=== PATIENT | female | born 1950 | race Caucasian/White ===

== ENCOUNTER 2020-11-17 15:29 | Outpatient (CLI) | payer MEDICARE, OTHER | END 2020-11-17 15:30 | disposition home or self-care (01) | LOC: BICRAD 15:29 | PROVIDERS: ATTEND Family Medicine | DX: M25.562 Pain in left knee (principal); M17.12 Unilateral primary osteoarthritis, left knee; M89.9 Disorder of bone, unspecified ==

== ENCOUNTER 2021-03-02 09:03 | Outpatient (CLI) | payer MEDICARE, OTHER ==
[2021-03-02 10:11] LABS: Bilirubin Neg (Negative); Blood, Urine Negative (Negative); Clarity Clear (Clear); Glucose, Urine (Dipstick) Normal (Negative); Ketone, Urine Negative (Negative); Leukocyte Negative (Negative); Nitrite Negative (Negative); Protein, Urine (Dipstick) Negative (Neg-Trace); Urobilinogen Normal mg/dL (Less than 2)
[2021-03-02 10:25] LABS: #Eosinphils 0.1 10x3/uL (0.0-0.5); #Monocytes 0.7 10x3/uL (0.0-1.1); #Neutrophils 3.6 10x3/uL (1.5-8.4); %Basophils 0.6 % (0.0-2.0); %Eosinophils 1.1 % (0.0-6.0); %Lymphocytes 32.7 % (18.0-47.0); %Monocytes 11.2 % (0.0-10.0); %Neutrophils 54.2 % (40.0-75.0); Hemoglobin 13.4 g/dL (12.0-15.5); Mean Corpuscular HGB CONC 31.6 g/dL (32.0-36.0); Mean Corpuscular Hemoglobin 30.9 pg (27.0-33.0); Mean Corpuscular Volume 97.7 fl (81.6-98.3); Mean Platelet Volume 10.5 fl (7.4-10.4); Platelet Count 253 10x3/uL (150-450); RBC Distribution Width 13.3 % (11.5-14.5); Red Blood Cell (RBC) Count 4.34 10x6/uL (3.90-5.03); White Blood Cell (WBC) Count 6.6 10x3/uL (3.5-10.5)
[2021-03-02 10:34] LABS: Prothrombin Time 10.9 sec (9.5-12.1)
[2021-03-02 10:35] LABS: Anion Gap 12 mmol/L (10-20); BUN (Urea Nitrogen) 18 mg/dL (9.8-20.1); Calc. Creatinine Clearance 0 mL/min (70-130); Calcium 9.7 mg/dL (7.8-10.44); Carbon Dioxide 26 mmol/L (23-31); Chloride 106 mmol/L (98-107); Glucose 77 mg/dL (80-115); Potassium 4.2 mmol/L (3.5-5.1); Sodium 140 mmol/L (136-145)
[2021-03-02 10:47] LABS: Bacteria/HPF None Seen HPF (None Seen); RBC/HPF 0-3 HPF (0-3); Squamous Epithelial 0-3 HPF (0-3); WBC/HPF 0-3 HPF (0-3)
[2021-03-03 02:26] LABS: SARS-CoV-2 PCR by NAA Not Detected (NotDetected)
== END 2021-03-02 09:04 | disposition home or self-care (01) ==
LOC: LABBT 09:03
PROVIDERS: ATTEND Orthopaedic Surgery
DX: Z01.818 Encounter for other preprocedural examination (principal); M17.12 Unilateral primary osteoarthritis, left knee; Z20.822 Contact with and (suspected) exposure to COVID-19
CPT/HCPCS: 80048; 81001; 85025; 85610; 86850; 86900; 86901; 87081; 93005; U0003; U0005; 93010

== ENCOUNTER 2021-04-13 09:14 | Outpatient (CLI) | payer MEDICARE, OTHER ==
[2021-04-13 19:28] LABS: SARS-CoV-2 PCR by NAA Not Detected (NotDetected)
== END 2021-04-13 09:15 | disposition home or self-care (01) ==
LOC: LABBT 09:14
PROVIDERS: ATTEND Orthopaedic Surgery
DX: Z01.812 Encounter for preprocedural laboratory examination (principal); M17.12 Unilateral primary osteoarthritis, left knee; Z20.822 Contact with and (suspected) exposure to COVID-19
CPT/HCPCS: U0003; U0005

== ENCOUNTER 2021-04-18 06:56 | Day surgery (SDC) | payer MEDICARE, OTHER ==
[2021-04-15 10:44] VITALS: BMI 37.4
[2021-04-18] MEDS ORDERED: Sodium Chloride 0.9% 100 ML ONE (08:01)
[2021-04-18] MEDS ORDERED: Tranexamic Acid 1,000 MG/10 ML VIAL ONE (08:01)
[2021-04-18] MEDS ORDERED: Vancomycin 1.5 GRAM/300 ML BAG 1.5 GM in Premix Bag 1 BAG IVPB SCH ×2 (08:15→21:00)
[2021-04-18 08:45] LABS: Prothrombin Time 13.3 sec (12.0-14.7)
[2021-04-18] MEDS ORDERED: Fentanyl 100 MCG/2 ML VIAL ONE ×4 (08:47→13:18)
[2021-04-18] MEDS ORDERED: Midazolam HCl 2 mg/2 ml Vial ONE ×2 (08:47→08:48)
[2021-04-18] MEDS ORDERED: Bupivacaine PF 0.5% 30 ML VIAL ONE (09:33)
[2021-04-18] MEDS ORDERED: PROPOFOL 200 MG/20 ML VIAL ONE (10:04)
[2021-04-18] MEDS ORDERED: Lidocaine 1% PF 5 ML VIAL ONE (10:04)
[2021-04-18] MEDS ORDERED: Dexamethasone 20 MG/5 ML VIAL ONE (10:04)
[2021-04-18] MEDS ORDERED: Bupivacaine HCl 0.5%/Epinephrine 1:200,000/PF 30 ml Vial ONE (10:04)
[2021-04-18] MEDS ORDERED: PHENYLEPHRINE-NS 100 MCG/ML 10 ML SYRINGE ONE (10:04)
[2021-04-18] MEDS ORDERED: Ketorolac Tromethamine 30 MG/ML VIAL ONE (10:04)
[2021-04-18] MEDS ORDERED: Ondansetron PF 4 MG/2 ML Vial ONE (10:04)
[2021-04-18] MEDS ORDERED: Fentanyl 100 MCG/2 ML VIAL IV PRN (10:05)
[2021-04-18] MEDS ORDERED: Acetaminophen 325 MG TAB PO PRN (10:10)
[2021-04-18] MEDS ORDERED: Promethazine HCl 25 MG/ML VIAL IM PRN ×3 (10:10→12:03)
[2021-04-18] MEDS ORDERED: Zolpidem Tartrate 5 MG TAB PO PRN ×2 (10:10→10:15)
[2021-04-18] MEDS ORDERED: diphenhydrAMINE 25 MG CAP PO PRN (10:10)
[2021-04-18] MEDS ORDERED: Ondansetron PF 4 MG/2 ML Vial IVP PRN ×2 (10:10→10:15)
[2021-04-18] MEDS ORDERED: Non-Formulary Item 1 EACH (Ibandronate Sodium [Ibandronate Sodium] 150 MG Tablet) PO SCH (10:15)
[2021-04-18] MEDS ORDERED: Ropivacaine 0.2% 550 ML 550 ML NERVE BLCK SCH (10:15)
[2021-04-18] MEDS ORDERED: traMADol HCl 50 MG TAB PO PRN ×2 (10:15)
[2021-04-18] MEDS ORDERED: Ketorolac Tromethamine 30 MG/ML VIAL IVP PRN (10:15)
[2021-04-18] MEDS ORDERED: HYDROcodone/Acetaminophen 10/325 mg Tablet PO PRN (10:15)
[2021-04-18] MEDS ORDERED: Tranexamic Acid 1,000 MG in Sodium Chloride 0.9% 100 ML IVPB SCH (10:15)
[2021-04-18] MEDS ORDERED: Promethazine HCl 25 MG/ML VIAL IVPB PRN (12:03)
[2021-04-18] MEDS ORDERED: Ondansetron HCl/PF 4 MG/2 ML Vial IVP PRN (12:03)
[2021-04-18] MEDS: Sodium Chloride 0.9% 1,000 ML IV SCH (16:20)
[2021-04-18] MEDS: HYDROcodone/Acetaminophen 10/325 mg Tablet PO PRN ×2 (16:49→21:43)
[2021-04-18] MEDS ORDERED: CEFAZOLIN 2 GM in Premix Bag 1 BAG IVPB SCH (18:00)
[2021-04-18] MEDS: Senokot S 8.6-50 MG TAB PO SCH (21:38)
[2021-04-18] MEDS: Aspirin 81 mg Enteric Coated Tablet PO SCH (21:39)
[2021-04-18] MEDS: Ferrous Gluconate 324 MG TAB PO SCH (21:39)
[2021-04-19] MEDS: Sodium Chloride 0.9% 1,000 ML IV SCH ×2 (01:15→05:01)
[2021-04-19] MEDS ORDERED: CEFAZOLIN 2 GM in Premix Bag 1 BAG IVPB SCH (02:00)
[2021-04-19] MEDS: HYDROcodone/Acetaminophen 10/325 mg Tablet PO PRN ×4 (02:22→16:11)
[2021-04-19 05:52] LABS: Hemoglobin 10.9 g/dL (12.0-16.0); Mean Corpuscular HGB CONC 32.7 g/dL (32.0-36.0); Mean Corpuscular Hemoglobin 31.7 pg (27.0-31.0); Mean Corpuscular Volume 96.7 fL (78.0-98.0); Mean Platelet Volume 7.8 fL (7.4-10.4); Platelet Count 210 thou/uL (130-400); Red Blood Cell (RBC) Count 3.45 mill/uL (4.20-5.40); White Blood Cell (WBC) Count 9.4 thou/uL (4.8-10.8)
[2021-04-19] MEDS: Ferrous Gluconate 324 MG TAB PO SCH (08:41)
[2021-04-19] MEDS: Aspirin 81 mg Enteric Coated Tablet PO SCH (08:42)
[2021-04-19] MEDS: Senokot S 8.6-50 MG TAB PO SCH (08:42)
[2021-04-19] MEDS ORDERED: Atorvastatin Calcium 40 MG TAB PO SCH (09:00)
[2021-04-19] MEDS ORDERED: Aspirin 81 mg Enteric Coated Tablet PO SCH (09:00)
[2021-04-19] MEDS ORDERED: Calcium Carbonate 600 MG + Vit D TAB PO SCH (09:00)
[2021-04-19] MEDS ORDERED: Multivitamin W/ Minerals 1 TAB PO SCH (09:00)
[2021-04-19 12:19] VITALS: BP 111/73; TEMP 98.3
== END 2021-04-19 17:05 | disposition home health service (06) ==
LOC: SDC 06:56 → SURG A 10:10 → SDC 04-19 17:05
PROVIDERS: ATTEND Orthopaedic Surgery
PROC: 0SRD0J9 Replacement of Left Knee Joint with Synthetic Substitute, Cemented, Open Approach (ICD-10-PCS; principal; 2021-04-18)
PROC: 3E0T3BZ Introduction of Anesthetic Agent into Peripheral Nerves and Plexi, Percutaneous Approach (ICD-10-PCS; 2021-04-18)
DX: M17.12 Unilateral primary osteoarthritis, left knee (principal); M21.062 Valgus deformity, not elsewhere classified, left knee; E78.5 Hyperlipidemia, unspecified; M81.0 Age-related osteoporosis without current pathological fracture; K21.9 Gastro-esophageal reflux disease without esophagitis; H26.9 Unspecified cataract; G89.29 Other chronic pain; Z88.5 Allergy status to narcotic agent; Z91.048 Other nonmedicinal substance allergy status; Z79.82 Long term (current) use of aspirin; Z79.899 Other long term (current) drug therapy; Z98.890 Other specified postprocedural states
CPT/HCPCS: 27447; 64447; 85027; 85610; 86850; 86900; 86901; 97110; 97116 ×2; 97139; 97530 ×2; A4306; C1713; C1776; 36415; J0690; J1100; J1885; J2250; J2405; J2704; J2795; J3010; J3370; J3490; S0020

== ENCOUNTER 2022-05-04 15:02 | Outpatient (CLI) | payer MEDICARE, OTHER ==
[2022-05-04 16:44] LABS: #Basophils 0.1 10x3/uL (0.0-0.2); #Eosinphils 0.1 10x3/uL (0.0-0.5); #Monocytes 0.6 10x3/uL (0.0-1.1); #Neutrophils 3.4 10x3/uL (1.5-8.4); %Basophils 0.8 % (0.0-2.0); %Eosinophils 1.1 % (0.0-6.0); %Lymphocytes 34.3 % (18.0-47.0); %Monocytes 9.4 % (0.0-10.0); %Neutrophils 54.1 % (40.0-75.0); Hemoglobin 12.9 g/dL (12.0-15.5); Mean Corpuscular HGB CONC 33.3 g/dL (32.0-36.0); Mean Corpuscular Hemoglobin 31.5 pg (27.0-33.0); Mean Corpuscular Volume 94.4 fl (81.6-98.3); Mean Platelet Volume 11.5 fl (7.4-10.4); Platelet Count 213 10x3/uL (150-450); RBC Distribution Width 13.9 % (11.5-14.5); White Blood Cell (WBC) Count 6.4 10x3/uL (3.5-10.5)
[2022-05-04 17:26] LABS: ALT (SGPT) 19 U/L (8-55); AST (SGOT) 22 U/L (5-34); Albumin 4.2 g/dL (3.4-4.8); Alkaline Phosphatase 63 U/L (40-110); Anion Gap 14 mmol/L (10-20); BUN (Urea Nitrogen) 19 mg/dL (9.8-20.1); Bilirubin, Total 0.6 mg/dL (0.2-1.2); Calc. Creatinine Clearance 0 mL/min (70-130); Calcium 9.2 mg/dL (7.8-10.44); Carbon Dioxide 25 mmol/L (23-31); Chloride 108 mmol/L (98-107); Estimated GFR 75; Globulin 2.2 g/dL (2.4-3.5); Glucose 91 mg/dL (80-115); Potassium 4.6 mmol/L (3.5-5.1); Protein, Total 6.4 g/dL (5.8-8.1); Sodium 142 mmol/L (136-145)
== END 2022-05-04 15:03 | disposition home or self-care (01) ==
LOC: LABBT 15:02
PROVIDERS: ATTEND Orthopaedic Surgery
DX: Z01.812 Encounter for preprocedural laboratory examination (principal); M17.12 Unilateral primary osteoarthritis, left knee
CPT/HCPCS: 80053; 85025

== ENCOUNTER 2022-05-05 06:50 | Day surgery (SDC) | payer MEDICARE, OTHER ==
[2022-05-04 12:41] VITALS: BMI 35.7
[2022-05-05 08:29] LABS: Cardiac Risk 2.9 (Less than 4.5)
[2022-05-05] MEDS ORDERED: Verapamil 5 MG/2 ML VIAL ONE (09:15)
[2022-05-05] MEDS ORDERED: Heparin 10,000 UNITS/ 10 ML VIAL ONE (09:15)
[2022-05-05] MEDS ORDERED: Lidocaine 1% (PF) 30 ML VIAL ONE (09:15)
[2022-05-05] MEDS ORDERED: Nitroglycerin 100MG/250ML BOT 0 ML ONE (09:15)
[2022-05-05] MEDS ORDERED: Nitroglycerin 100MG/250ML BOT 250 ML ONE (09:16)
[2022-05-05] MEDS ORDERED: Midazolam HCl 2 mg/2 ml Vial ONE (09:23)
[2022-05-05] MEDS ORDERED: Fentanyl 100 MCG/2 ML VIAL ONE (09:23)
[2022-05-05] MEDS ORDERED: Iopamidol 370 76% 100 ML VIAL ONE (09:52)
== END 2022-05-05 13:40 | disposition home or self-care (01) ==
LOC: SDC 06:50
PROVIDERS: ATTEND Internal Medicine Cardiovascular Disease
PROC: 4A023N7 Measurement of Cardiac Sampling and Pressure, Left Heart, Percutaneous Approach (ICD-10-PCS; principal; 2022-05-05)
PROC: B2111ZZ Fluoroscopy of Multiple Coronary Arteries using Low Osmolar Contrast (ICD-10-PCS; 2022-05-05)
DX: I25.10 Atherosclerotic heart disease of native coronary artery without angina pectoris (principal); I25.82 Chronic total occlusion of coronary artery; I42.9 Cardiomyopathy, unspecified; E78.00 Pure hypercholesterolemia, unspecified; M81.0 Age-related osteoporosis without current pathological fracture; K21.9 Gastro-esophageal reflux disease without esophagitis; Z79.82 Long term (current) use of aspirin; Z79.899 Other long term (current) drug therapy; Z88.5 Allergy status to narcotic agent; Z91.048 Other nonmedicinal substance allergy status
CPT/HCPCS: 36415; 80061; 93454; 99152; C1894; J1644; J2001; J2250; J3010; Q9967

== ENCOUNTER 2023-02-12 11:00 | Inpatient (IN) | payer MEDICARE, OTHER ==
[2023-02-12 12:13] LABS: Hematocrit 44.4 % (34.9-44.5); Hemoglobin 13.9 g/dL (12.0-15.5); Mean Corpuscular HGB CONC 31.3 g/dL (32.0-36.0); Mean Corpuscular Hemoglobin 30.8 pg (27.0-33.0); Mean Corpuscular Volume 98.2 fl (81.6-98.3); Mean Platelet Volume 10.2 fl (7.4-10.4); Platelet Count 245 10x3/uL (150-450); RBC Distribution Width 13.6 % (11.5-14.5); Red Blood Cell (RBC) Count 4.52 10x6/uL (3.90-5.03); White Blood Cell (WBC) Count 6.8 10x3/uL (3.5-10.5)
[2023-02-12 12:26] LABS: Anion Gap 16 mmol/L (10-20); BUN (Urea Nitrogen) 21 mg/dL (9.8-20.1); Calc. Creatinine Clearance 0 mL/min (70-130); Calcium 9.5 mg/dL (7.8-10.44); Carbon Dioxide 23 mmol/L (23-31); Chloride 107 mmol/L (98-107); Estimated GFR 71; Glucose 86 mg/dL (80-115); Potassium 4.8 mmol/L (3.5-5.1); Sodium 141 mmol/L (136-145)
[2023-02-13] MEDS ORDERED: Ketamine 50 MG/ML (10ML VIAL) ONE (06:00)
[2023-02-13] MEDS ORDERED: Fentanyl 250 MCG/5 ML VIAL ONE (06:00)
[2023-02-13] MEDS ORDERED: Midazolam HCl 2 mg/2 ml Vial ONE (06:00)
[2023-02-13] MEDS ORDERED: Norepinephrine 4 MG/4 ML VIAL ONE (06:01)
[2023-02-13] MEDS ORDERED: Milrinone 10 MG/10 ML VIAL ONE (06:01)
[2023-02-13] MEDS ORDERED: Aminocaproic Acid 5 GM/20 ML VIAL ONE ×2 (06:01→07:00)
[2023-02-13] MEDS ORDERED: Magnesium 5 GM/10 ML VIAL ONE ×2 (06:01→07:00)
[2023-02-13] MEDS ORDERED: Phenylephrine 10 MG/ML VIAL ONE ×2 (06:01→06:38)
[2023-02-13] MEDS ORDERED: Lidocaine 1% MPF 2 ML VIAL ONE (06:02)
[2023-02-13] MEDS ORDERED: Acetaminophen 500 MG TAB ONE (06:25)
[2023-02-13] MEDS ORDERED: Albumin 5% 500 ML ONE (06:38)
[2023-02-13] MEDS ORDERED: PHENYLEPHRINE-NS 100 MCG/ML 10 ML SYRINGE ONE (06:39)
[2023-02-13] MEDS ORDERED: Heparin 10,000 UNITS/1 ML VIAL 30,000 UNITS in Sodium Chloride 0.9% 1,000 ML FS SCH (06:45)
[2023-02-13] MEDS ORDERED: Rocuronium Bromide 10 MG/ML (10ML VIAL) ONE (07:00)
[2023-02-13] MEDS ORDERED: PROPOFOL 200 MG/20 ML VIAL ONE (07:00)
[2023-02-13] MEDS ORDERED: Thrombin 5000 UNITS/5 ML VIAL ONE (07:00)
[2023-02-13] MEDS ORDERED: Vancomycin 1 GM VIAL ONE (07:00)
[2023-02-13] MEDS ORDERED: Heparin 30,000 units/30 ml VIAL ONE (07:00)
[2023-02-13] MEDS ORDERED: Lidocaine 2% PF 100 mg/5 ml Syringe ONE (07:00)
[2023-02-13] MEDS ORDERED: Calcium Chloride 1 GM/10 ML Abboject SYRINGE ONE (07:00)
[2023-02-13] MEDS ORDERED: Mannitol 12.5 GM/50 ML ONE (07:00)
[2023-02-13] MEDS ORDERED: Potassium Chloride 60 MEQ/30 ML VIAL ONE (07:00)
[2023-02-13] MEDS ORDERED: Sodium Bicarb 50 MEQ/50 ML VIAL ONE (07:00)
[2023-02-13] MEDS ORDERED: Protamine Sulfate 250 MG/25 ML VIAL ONE (07:00)
[2023-02-13] MEDS ORDERED: Cardioplegic Soln 1,000 ML BAG ONE (07:00)
[2023-02-13] MEDS ORDERED: Heparin 5,000 UNITS/ML VIAL ONE (07:00)
[2023-02-13] MEDS ORDERED: Papaverine 60 MG/2 ML VIAL ONE (07:00)
[2023-02-13] MEDS ORDERED: CEFAZOLIN 2 GM VIAL ONE (07:29)
[2023-02-13] MEDS ORDERED: Sodium Chloride 0.9% 100 ML ONE (07:29)
[2023-02-13] MEDS ORDERED: Insulin Regular 300 UNITS/3 ML VIAL ONE (10:15)
[2023-02-13] MEDS ORDERED: NOREPINEPHRINE 8 MG/250 ML-D5W 250 ML ONE (11:48)
[2023-02-13 11:50] LABS: Actual Bicarbonate (HCO3a) 20.9 mEq/L (22-28); Base Excess (BEa) -3.5 mEq/L (-2.0 to +3.0); CO2 Tension 35.4 mmHg (35.0-45.0); Calcium, Ionized (arterial) 1.14 mmol/L (1.12-1.30); Carboxyhemoglobin (COHb) 0.3 gm% (0.0-3.0); Hematocrit-ABG 36 % (36.0-47.0); Hemoglobin (Hb) 12.1 g/dL (12.0-16.0); O2 Tension (PaO2), arterial 217.6 mmHg (> 70.0); pH, Arterial 7.388 (7.35-7.45)
[2023-02-13 11:51] LABS: Puncture Site Arterial Line
[2023-02-13] MEDS ORDERED: hydrALAZINE 20 MG/ML VIAL SLOW IVP PRN (12:25)
[2023-02-13] MEDS ORDERED: Potassium Chloride 20 MEQ/100 ML PREMIX BAG IVPB PRN (12:25)
[2023-02-13] MEDS ORDERED: Mag-Al 1200 mg/1200 mg/30 ML UDCUP PO PRN (12:25)
[2023-02-13] MEDS ORDERED: Ondansetron PF 4 MG/2 ML Vial IVP PRN (12:25)
[2023-02-13] MEDS ORDERED: Nitroglycerin 50 MG/250 ML BOT 250 ML IVPB PRN (12:25)
[2023-02-13] MEDS ORDERED: fentaNYL 50 mcg/mL 1 mL Vial SLOW IVP PRN (12:25)
[2023-02-13] MEDS ORDERED: DOPamine 400 MG/D5W 250 ML 250 ML IVPB PRN (12:25)
[2023-02-13] MEDS ORDERED: Guaifenesin DM 100-10/5 ML UDCUP PO PRN (12:25)
[2023-02-13] MEDS ORDERED: Post-Op Insulin Drip Protocol IVPB PRN (12:25)
[2023-02-13] MEDS ORDERED: Ipratropium/Albuterol 3 ML NEB NEB PRN (12:25)
[2023-02-13] MEDS ORDERED: Hetastarch 6% 500 ML 500 ML IVPB PRN (12:25)
[2023-02-13] MEDS ORDERED: NOREPINEPHRINE 8 MG/250 ML-D5W 250 ML IVPB PRN (12:25)
[2023-02-13] MEDS ORDERED: niCARdipine 25 MG in Sodium Chloride 0.9% 250 ML 250 ML IVPB PRN (12:25)
[2023-02-13] MEDS ORDERED: Bisacodyl 5 MG TAB PO PRN (12:25)
[2023-02-13] MEDS ORDERED: Bisacodyl 10 MG SUPP PR PRN (12:25)
[2023-02-13] MEDS ORDERED: Morphine 2 MG/ML VIAL SLOW IVP PRN (12:25)
[2023-02-13] MEDS ORDERED: Dextrose 5% in Water 1,000 ML IV PRN (12:45)
[2023-02-13] MEDS ORDERED: Insulin Regular 300 UNITS/3 ML VIAL SC PRN (12:45)
[2023-02-13] MEDS ORDERED: Dextrose 50% Abboject 50 ML SYRINGE SLOW IVP PRN (12:45)
[2023-02-13] MEDS ORDERED: Glucagon 1 MG/ML KIT SC PRN (12:45)
[2023-02-13 12:55] LABS: Hematocrit 34.3 % (36.0-47.0); Hemoglobin 11.3 g/dL (12.0-16.0); Mean Corpuscular HGB CONC 32.9 g/dL (32.0-36.0); Mean Corpuscular Hemoglobin 32.5 pg (27.0-31.0); Mean Corpuscular Volume 98.6 fl (78.0-98.0); Mean Platelet Volume 10.3 fL (7.4-10.4); Platelet Count 150 10x3/uL (130-400); RBC Distribution Width 13.6 % (11.5-14.5); Red Blood Cell (RBC) Count 3.48 mill/uL (4.20-5.40)
[2023-02-13 13:03] LABS: Delete Auto Diff?? YES; Manual Diff?? YES
[2023-02-13 13:10] LABS: INR-International Normal Ratio 1.4; PTT 32.3 sec (22.9-36.1); Prothrombin Time 17.5 sec (12.0-14.7)
[2023-02-13] MEDS: Lactated Ringer's 1,000 ML IV SCH (13:15)
[2023-02-13 13:21] LABS: Anion Gap 11 mmol/L (10-20); BUN (Urea Nitrogen) 19 mg/dL (9.8-20.1); Calc. Creatinine Clearance 113 mL/min (70-130); Carbon Dioxide 21 mmol/L (23-31); Chloride 111 mmol/L (98-107); Estimated GFR 91; Glucose 146 mg/dL (80-115); Potassium 4.3 mmol/L (3.5-5.1); Sodium 139 mmol/L (136-145)
[2023-02-13] MEDS ORDERED: HUMULIN R 100 UNITS in Sodium Chloride 0.9% 100 ML IVPB SCH (13:30)
[2023-02-13] MEDS: Ketorolac Tromethamine 30 MG/ML VIAL IVP SCH ×2 (13:31→18:34)
[2023-02-13 13:49] LABS: Band 30 % (5-11); Burr Cells SLIGHT = 2-5 cells HPF (0-1); CellaVision Operator ID LAB.MJL; Large Platelets 0.9 % (0-5); Lymphocytes 3 % (21-51); Metamyelocyte 2 % (0-0); Neutrophil 66 % (42-75); Ovalocytes SLIGHT = 2-5 cells HPF (0-1); Platelet Adequacy Comment Platelets Normal; Polychromasia SLIGHT = 2-3 cells HPF (0-2); Total Cell Count 117
[2023-02-13 14:49] LABS: Actual Bicarbonate (HCO3a) 18.7 mEq/L (22-28); Base Excess (BEa) -5.5 mEq/L (-2.0 to +3.0); CO2 Tension 32.8 mmHg (35.0-45.0); Calcium, Ionized (arterial) 1.14 mmol/L (1.12-1.30); Hematocrit-ABG 41 % (36.0-47.0); O2 Tension (PaO2), arterial 176.4 mmHg (> 70.0); Potassium - ABG Lab 3.82 mmol/L (3.70-5.30); pH, Arterial 7.374 (7.35-7.45)
[2023-02-13 15:02] LABS: Puncture Site Arterial Line
[2023-02-13] MEDS: CEFAZOLIN 2 GM in Sodium Chloride 0.9% 100 ML IVPB SCH (16:39)
[2023-02-13] MEDS: fentaNYL 50 mcg/mL 1 mL Vial SLOW IVP PRN ×2 (16:46→20:08)
[2023-02-13 17:17] LABS: Hematocrit 37.4 % (36.0-47.0)
[2023-02-13 17:40] LABS: Potassium 4.5 mmol/L (3.5-5.1)
[2023-02-13] MEDS: Atorvastatin Calcium 20 MG TAB PO SCH (20:09)
[2023-02-13] MEDS: Famotidine/PF 20 mg/2ml Vial SLOW IVP SCH (20:09)
[2023-02-14 01:49] LABS: #Monocytes 0.9 thou/uL (0.11-0.59); #Neutrophils 8.5 thou/uL (1.40-6.50); %Basophils 0.1 % (0.0-1.0); %Lymphocytes 10.2 % (21.0-51.0); %Monocytes 8.3 % (0.0-10.0); %Neutrophils 81.1 % (42.0-75.0); Hematocrit 30.8 % (36.0-47.0); Hemoglobin 10.1 g/dL (12.0-16.0); Mean Corpuscular HGB CONC 32.8 g/dL (32.0-36.0); Mean Corpuscular Hemoglobin 32.2 pg (27.0-31.0); Mean Corpuscular Volume 98.1 fl (78.0-98.0); Platelet Count 127 10x3/uL (130-400); RBC Distribution Width 13.7 % (11.5-14.5); Red Blood Cell (RBC) Count 3.14 mill/uL (4.20-5.40); White Blood Cell (WBC) Count 10.4 10x3/uL (4.8-10.8)
[2023-02-14] MEDS ORDERED: HEXTEND 6% LR 500ML 500 ML IVPB PRN (01:53)
[2023-02-14 02:26] LABS: Anion Gap 10 mmol/L (10-20); BUN (Urea Nitrogen) 17 mg/dL (9.8-20.1); Calc. Creatinine Clearance 110 mL/min (70-130); Calcium 8.2 mg/dL (7.8-10.44); Carbon Dioxide 20 mmol/L (23-31); Chloride 113 mmol/L (98-107); Estimated GFR 88; Glucose 157 mg/dL (80-115); Potassium 3.8 mmol/L (3.5-5.1); Sodium 139 mmol/L (136-145)
[2023-02-14] MEDS: Ketorolac Tromethamine 30 MG/ML VIAL IVP SCH ×4 (02:39→18:20)
[2023-02-14] MEDS: CEFAZOLIN 2 GM in Sodium Chloride 0.9% 100 ML IVPB SCH ×2 (02:40→08:06)
[2023-02-14] MEDS: Acetaminophen 325 MG TAB PO PRN ×3 (05:12→20:55)
[2023-02-14] MEDS: fentaNYL 50 mcg/mL 1 mL Vial SLOW IVP PRN (05:20)
[2023-02-14] MEDS: Lactated Ringer's 1,000 ML IV SCH ×2 (06:13→14:55)
[2023-02-14] MEDS: Magnesium 2 GM/50 ML(in water) 2 GM in Premix Bag 1 BAG IVPB SCH (09:42)
[2023-02-14] MEDS: Famotidine/PF 20 mg/2ml Vial SLOW IVP SCH ×2 (09:42→20:47)
[2023-02-14] MEDS: Aspirin Chewable 81 MG TAB PO SCH (09:42)
[2023-02-14] MEDS: Polyethylene Glycol 3350 17 GM Packet PO SCH (09:43)
[2023-02-14] MEDS ORDERED: Insulin Glargine 30 UNITS/0.3 ML VIAL SC PRN (12:43)
[2023-02-14] MEDS: Phenylephrine 40 MG/NS 250 ML 40 MG in Premix Bag 1 BAG IVPB SCH (15:15)
[2023-02-14] MEDS: Atorvastatin Calcium 20 MG TAB PO SCH (20:47)
[2023-02-15] MEDS: Ketorolac Tromethamine 30 MG/ML VIAL IVP SCH ×4 (00:52→18:35)
[2023-02-15 04:09] LABS: #Monocytes 1.1 thou/uL (0.11-0.59); %Basophils 0.2 % (0.0-1.0); %Eosinophils 0.1 % (0.0-10.0); %Lymphocytes 17.1 % (21.0-51.0); %Monocytes 9.7 % (0.0-10.0); %Neutrophils 72.4 % (42.0-75.0); Hematocrit 29.5 % (36.0-47.0); Hemoglobin 9.7 g/dL (12.0-16.0); Mean Corpuscular HGB CONC 32.9 g/dL (32.0-36.0); Mean Corpuscular Hemoglobin 31.9 pg (27.0-31.0); Mean Platelet Volume 10.2 fL (7.4-10.4); Platelet Count 124 10x3/uL (130-400); RBC Distribution Width 14.3 % (11.5-14.5); Red Blood Cell (RBC) Count 3.04 mill/uL (4.20-5.40)
[2023-02-15 04:30] LABS: Anion Gap 10 mmol/L (10-20); BUN (Urea Nitrogen) 11 mg/dL (9.8-20.1); Calc. Creatinine Clearance 0 mL/min (70-130); Calcium 7.9 mg/dL (7.8-10.44); Carbon Dioxide 20 mmol/L (23-31); Chloride 112 mmol/L (98-107); Estimated GFR 91; Glucose 121 mg/dL (80-115); Potassium 4.2 mmol/L (3.5-5.1); Sodium 138 mmol/L (136-145)
[2023-02-15] MEDS: traMADol HCl 50 MG TAB PO PRN (05:04)
[2023-02-15] MEDS: Aspirin Chewable 81 MG TAB PO SCH (09:47)
[2023-02-15] MEDS: Polyethylene Glycol 3350 17 GM Packet PO SCH (09:47)
[2023-02-15] MEDS: Magnesium 2 GM/50 ML(in water) 2 GM in Premix Bag 1 BAG IVPB SCH (09:47)
[2023-02-15] MEDS: Famotidine/PF 20 mg/2ml Vial SLOW IVP SCH ×2 (09:47→20:22)
[2023-02-15] MEDS: Phenylephrine 40 MG/NS 250 ML 40 MG in Premix Bag 1 BAG IVPB SCH (10:46)
[2023-02-15] MEDS ORDERED: Sodium Chloride 0.9% 500 ML IVPB SCH (14:45)
[2023-02-15] MEDS: DOBUTamine 500 mg/250 ml 250 ML IVPB SCH (17:53)
[2023-02-15] MEDS: Atorvastatin Calcium 20 MG TAB PO SCH (20:22)
[2023-02-16] MEDS: Ketorolac Tromethamine 30 MG/ML VIAL IVP SCH ×2 (00:21→07:43)
[2023-02-16 03:55] LABS: #Eosinphils 0.1 thou/uL (0.0-0.7); #Monocytes 0.8 thou/uL (0.11-0.59); %Basophils 0.2 % (0.0-1.0); %Eosinophils 0.7 % (0.0-10.0); %Monocytes 9.3 % (0.0-10.0); %Neutrophils 73.3 % (42.0-75.0); Mean Corpuscular HGB CONC 32.1 g/dL (32.0-36.0); Mean Corpuscular Volume 99.6 fl (78.0-98.0); Mean Platelet Volume 9.8 fL (7.4-10.4); Platelet Count 117 10x3/uL (130-400); RBC Distribution Width 14.3 % (11.5-14.5); Red Blood Cell (RBC) Count 2.81 mill/uL (4.20-5.40); White Blood Cell (WBC) Count 8.2 10x3/uL (4.8-10.8)
[2023-02-16 04:20] LABS: Anion Gap 9 mmol/L (10-20); BUN (Urea Nitrogen) 12 mg/dL (9.8-20.1); Calc. Creatinine Clearance 112 mL/min (70-130); Calcium 7.7 mg/dL (7.8-10.44); Carbon Dioxide 23 mmol/L (23-31); Chloride 111 mmol/L (98-107); Estimated GFR 91; Glucose 101 mg/dL (80-115); Potassium 4.3 mmol/L (3.5-5.1); Sodium 139 mmol/L (136-145)
[2023-02-16] MEDS: Polyethylene Glycol 3350 17 GM Packet PO SCH (07:45)
[2023-02-16] MEDS: Aspirin Chewable 81 MG TAB PO SCH (07:46)
[2023-02-16] MEDS: DOBUTamine 500 mg/250 ml 250 ML IVPB SCH (11:10)
[2023-02-16] MEDS: Acetaminophen 325 MG TAB PO PRN (12:02)
[2023-02-16] MEDS: Atorvastatin Calcium 20 MG TAB PO SCH (20:13)
[2023-02-17 02:54] LABS: Bacteria/HPF None Seen HPF (None Seen); Bilirubin Negative (Negative); Blood, Urine Negative (Negative); Clarity Clear (Clear); Glucose, Urine (Dipstick) Normal (Negative); Ketone, Urine Negative (Negative); Leukocyte 25 Leu/uL (Negative); Nitrite Negative (Negative); Protein, Urine (Dipstick) Negative (Neg-Trace); RBC/HPF 0-3 HPF (0-3); Specific Gravity, Urine 1.009 (1.002-1.036); Squamous Epithelial 0-3 HPF (0-3); Urobilinogen Normal mg/dL (Less than 2); pH, Urine 7.5 (5.0-9.0)
[2023-02-17 04:38] LABS: #Eosinphils 0.1 thou/uL (0.0-0.7); #Monocytes 0.6 thou/uL (0.11-0.59); #Neutrophils 5.3 thou/uL (1.40-6.50); %Basophils 0.1 % (0.0-1.0); %Eosinophils 1.5 % (0.0-10.0); %Lymphocytes 16.1 % (21.0-51.0); %Monocytes 8.5 % (0.0-10.0); %Neutrophils 73.5 % (42.0-75.0); Mean Corpuscular HGB CONC 32.1 g/dL (32.0-36.0); Mean Corpuscular Hemoglobin 31.7 pg (27.0-31.0); Mean Corpuscular Volume 98.6 fl (78.0-98.0); Mean Platelet Volume 10.3 fL (7.4-10.4); Platelet Count 148 10x3/uL (130-400); RBC Distribution Width 14.2 % (11.5-14.5); Red Blood Cell (RBC) Count 2.84 mill/uL (4.20-5.40); White Blood Cell (WBC) Count 7.2 10x3/uL (4.8-10.8)
[2023-02-17 05:05] LABS: Anion Gap 9 mmol/L (10-20); BUN (Urea Nitrogen) 9 mg/dL (9.8-20.1); Calc. Creatinine Clearance 113 mL/min (70-130); Calcium 8.4 mg/dL (7.8-10.44); Carbon Dioxide 24 mmol/L (23-31); Chloride 111 mmol/L (98-107); Estimated GFR 93; Glucose 104 mg/dL (80-115); Potassium 4.4 mmol/L (3.5-5.1); Sodium 140 mmol/L (136-145)
[2023-02-17] MEDS: Aspirin Chewable 81 MG TAB PO SCH (08:16)
[2023-02-17] MEDS: Polyethylene Glycol 3350 17 GM Packet PO SCH (08:17)
[2023-02-17] MEDS: traMADol HCl 50 MG TAB PO PRN ×2 (08:24→20:33)
[2023-02-17] MEDS ORDERED: Nitroglycerin 0.4 MG TAB (25 Tab Bottle) SL PRN (11:02)
[2023-02-17] MEDS ORDERED: Carvedilol 3.125 MG TAB PO SCH ×2 (11:15→12:00)
[2023-02-17] MEDS: DOBUTamine 500 mg/250 ml 250 ML IVPB SCH (11:27)
[2023-02-17] MEDS: Carvedilol 3.125 MG TAB PO SCH (20:36)
[2023-02-17] MEDS: Atorvastatin Calcium 20 MG TAB PO SCH (20:37)
[2023-02-18 05:13] LABS: #Eosinphils 0.2 thou/uL (0.0-0.7); #Monocytes 0.7 thou/uL (0.11-0.59); #Neutrophils 3.2 thou/uL (1.40-6.50); %Basophils 0.5 % (0.0-1.0); %Eosinophils 4.1 % (0.0-10.0); %Lymphocytes 26.2 % (21.0-51.0); %Monocytes 12.5 % (0.0-10.0); %Neutrophils 56.3 % (42.0-75.0); Hematocrit 27.6 % (36.0-47.0); Mean Corpuscular HGB CONC 32.6 g/dL (32.0-36.0); Mean Corpuscular Hemoglobin 32.4 pg (27.0-31.0); Mean Corpuscular Volume 99.3 fl (78.0-98.0); Mean Platelet Volume 10.1 fL (7.4-10.4); Platelet Count 162 10x3/uL (130-400); RBC Distribution Width 14.1 % (11.5-14.5); Red Blood Cell (RBC) Count 2.78 mill/uL (4.20-5.40); White Blood Cell (WBC) Count 5.6 10x3/uL (4.8-10.8)
[2023-02-18 05:37] VITALS: BMI 33.5
[2023-02-18 05:38] LABS: Anion Gap 10 mmol/L (10-20); BUN (Urea Nitrogen) 12 mg/dL (9.8-20.1); Calc. Creatinine Clearance 108 mL/min (70-130); Calcium 8.1 mg/dL (7.8-10.44); Carbon Dioxide 23 mmol/L (23-31); Chloride 108 mmol/L (98-107); Estimated GFR 90; Glucose 95 mg/dL (80-115); Potassium 4.1 mmol/L (3.5-5.1); Sodium 137 mmol/L (136-145)
[2023-02-18] MEDS: Carvedilol 3.125 MG TAB PO SCH ×2 (07:30→20:56)
[2023-02-18] MEDS: Spironolactone 25 MG TAB PO SCH (07:31)
[2023-02-18] MEDS: Furosemide 20 MG TAB PO SCH (07:31)
[2023-02-18] MEDS: Polyethylene Glycol 3350 17 GM Packet PO SCH (07:31)
[2023-02-18] MEDS: Aspirin Chewable 81 MG TAB PO SCH (07:31)
[2023-02-18] MEDS ORDERED: Carvedilol 3.125 MG TAB PO SCH ×2 (09:00→10:45)
[2023-02-18] MEDS: traMADol HCl 50 MG TAB PO PRN ×2 (13:50→19:58)
[2023-02-18] MEDS: Atorvastatin Calcium 20 MG TAB PO SCH (20:56)
[2023-02-19] MEDS: DOBUTamine 500 mg/250 ml 250 ML IVPB SCH (03:20)
[2023-02-19] MEDS: traMADol HCl 50 MG TAB PO PRN ×2 (03:20→20:37)
[2023-02-19] MEDS: Polyethylene Glycol 3350 17 GM Packet PO SCH (09:24)
[2023-02-19] MEDS: Spironolactone 25 MG TAB PO SCH (09:25)
[2023-02-19] MEDS: Aspirin Chewable 81 MG TAB PO SCH (09:25)
[2023-02-19] MEDS: Furosemide 20 MG TAB PO SCH (09:25)
[2023-02-19] MEDS: Carvedilol 3.125 MG TAB PO SCH ×2 (09:25→20:37)
[2023-02-19] MEDS: Atorvastatin Calcium 20 MG TAB PO SCH (20:37)
[2023-02-20] MEDS: traMADol HCl 50 MG TAB PO PRN ×3 (03:13→12:59)
[2023-02-20] MEDS: Spironolactone 25 MG TAB PO SCH (08:52)
[2023-02-20] MEDS: Aspirin Chewable 81 MG TAB PO SCH (08:53)
[2023-02-20] MEDS: Furosemide 20 MG TAB PO SCH (08:53)
[2023-02-20] MEDS: Carvedilol 3.125 MG TAB PO SCH (08:53)
[2023-02-20] MEDS: Polyethylene Glycol 3350 17 GM Packet PO SCH (08:54)
[2023-02-20] MEDS ORDERED: Iopamidol-370 76% 500 ML MDV (1 ML CHARGE) ONE (09:45)
[2023-02-20 12:06] LABS: Actual Bicarbonate (HCO3a) 21.8 mEq/L (22-28); Analyzer IN Cardio OR; Base Excess (BEa) -3.2 mEq/L (-2.0 to +3.0); CO2 Tension 39.1 mmHg (35.0-45.0); Calcium, Ionized (arterial) 1.15 mmol/L (1.12-1.30); Carboxyhemoglobin (COHb) 0.5 gm% (0.0-3.0); Hematocrit-ABG 39 % (36.0-47.0); Hemoglobin (Hb) 13.1 g/dL (12.0-16.0); O2 Tension (PaO2), arterial 375.5 mmHg (> 70.0); Potassium - ABG Lab 3.87 mmol/L (3.70-5.30); pH, Arterial 7.364 (7.35-7.45)
[2023-02-20 12:06] LABS: Actual Bicarbonate (HCO3a) 21.4 mEq/L (22-28); Analyzer IN Cardio OR; Base Excess (BEa) -4.3 mEq/L (-2.0 to +3.0); CO2 Tension 41.7 mmHg (35.0-45.0); Calcium, Ionized (arterial) 1.12 mmol/L (1.12-1.30); Carboxyhemoglobin (COHb) 0.6 gm% (0.0-3.0); Hematocrit-ABG 38 % (36.0-47.0); Hemoglobin (Hb) 12.8 g/dL (12.0-16.0); O2 Tension (PaO2), arterial 379.6 mmHg (> 70.0); pH, Arterial 7.329 (7.35-7.45)
[2023-02-20 12:07] LABS: Actual Bicarbonate (HCO3a) 21.3 mEq/L (22-28); Analyzer IN Cardio OR; Base Excess (BEa) -3.3 mEq/L (-2.0 to +3.0); CO2 Tension 36.4 mmHg (35.0-45.0); Calcium, Ionized (arterial) 1.19 mmol/L (1.12-1.30); Carboxyhemoglobin (COHb) 0.1 gm% (0.0-3.0); Hematocrit-ABG 26 % (36.0-47.0); Potassium - ABG Lab 4.54 mmol/L (3.70-5.30); pH, Arterial 7.386 (7.35-7.45)
[2023-02-20 12:07] LABS: Actual Bicarbonate (HCO3a) 23.3 mEq/L (22-28); Analyzer IN Cardio OR; Base Excess (BEa) -0.7 mEq/L (-2.0 to +3.0); CO2 Tension 35.2 mmHg (35.0-45.0); Calcium, Ionized (arterial) 0.99 mmol/L (1.12-1.30); Carboxyhemoglobin (COHb) 0.4 gm% (0.0-3.0); Hematocrit-ABG 24 % (36.0-47.0); Hemoglobin (Hb) 8.3 g/dL (12.0-16.0); Potassium - ABG Lab 5.32 mmol/L (3.70-5.30); pH, Arterial 7.438 (7.35-7.45)
[2023-02-20 12:07] LABS: Actual Bicarbonate (HCO3a) 20.1 mEq/L (22-28); Analyzer IN Cardio OR; Base Excess (BEa) -2.7 mEq/L (-2.0 to +3.0); Calcium, Ionized (arterial) 0.89 mmol/L (1.12-1.30); Carboxyhemoglobin (COHb) 0.3 gm% (0.0-3.0); Hematocrit-ABG 24 % (36.0-47.0); O2 Tension (PaO2), arterial 521.7 mmHg (> 70.0); Potassium - ABG Lab 4.86 mmol/L (3.70-5.30); pH, Arterial 7.489 (7.35-7.45)
[2023-02-20 12:07] LABS: Puncture Site Arterial Line
[2023-02-20 12:08] LABS: Puncture Site Arterial Line
[2023-02-20 12:08] LABS: Puncture Site Arterial Line
[2023-02-20 12:10] LABS: Puncture Site Arterial Line
[2023-02-20 12:11] LABS: Puncture Site Arterial Line
[2023-02-20] MEDS: Acetaminophen 325 MG TAB PO PRN (14:42)
[2023-02-20] MEDS ORDERED: Ketorolac Tromethamine 30 MG/ML VIAL IVP SCH (15:45)
[2023-02-20] MEDS ORDERED: HYDROcodone/Acetaminophen 5/325 mg Tablet PO PRN ×2 (17:06)
[2023-02-20] MEDS ORDERED: Furosemide 40 MG/4 ML VIAL SLOW IVP SCH ×2 (18:45)
[2023-02-20] MEDS: Carvedilol 6.25 MG TAB PO SCH (22:21)
[2023-02-20] MEDS: Atorvastatin Calcium 20 MG TAB PO SCH (22:22)
[2023-02-21] MEDS: Ketorolac Tromethamine 30 MG/ML VIAL IVP SCH ×3 (03:25→12:03)
[2023-02-21 08:42] VITALS: TEMP 98.1
[2023-02-21] MEDS: Spironolactone 25 MG TAB PO SCH (08:43)
[2023-02-21] MEDS: Furosemide 20 MG TAB PO SCH (08:43)
[2023-02-21] MEDS: Aspirin Chewable 81 MG TAB PO SCH (08:43)
[2023-02-21] MEDS: Carvedilol 6.25 MG TAB PO SCH (08:44)
[2023-02-21] MEDS: Polyethylene Glycol 3350 17 GM Packet PO SCH (08:49)
[2023-02-21 12:49] VITALS: BP 97/62
== END 2023-02-21 15:20 | disposition home or self-care (01) | DRG 236 ==
LOC: SURG A 02-13 06:11 → CCU 02-13 10:12 → 2NO 02-18 13:48
PROVIDERS: ADMIT Thoracic Surgery (Cardiothoracic Vascular Surgery); ATTEND Thoracic Surgery (Cardiothoracic Vascular Surgery)
PROC: 02100Z9 Bypass Coronary Artery, One Artery from Left Internal Mammary, Open Approach (ICD-10-PCS; principal; 2023-02-13)
PROC: 021209W Bypass Coronary Artery, Three Arteries from Aorta with Autologous Venous Tissue, Open Approach (ICD-10-PCS; 2023-02-13)
PROC: 06BQ3ZZ Excision of Left Saphenous Vein, Percutaneous Approach (ICD-10-PCS; 2023-02-13)
PROC: 5A1221Z Performance of Cardiac Output, Continuous (ICD-10-PCS; 2023-02-13)
PROC: 02L70CK Occlusion of Left Atrial Appendage with Extraluminal Device, Open Approach (ICD-10-PCS; 2023-02-13)
PROC: 05H533Z Insertion of Infusion Device into Right Subclavian Vein, Percutaneous Approach (ICD-10-PCS; 2023-02-13)
PROC: B5161ZA Fluoroscopy of Right Subclavian Vein using Low Osmolar Contrast, Guidance (ICD-10-PCS; 2023-02-13)
PROC: 4A133R1 Monitoring of Arterial Saturation, Peripheral, Percutaneous Approach (ICD-10-PCS; 2023-02-13)
PROC: 3E033XZ Introduction of Vasopressor into Peripheral Vein, Percutaneous Approach (ICD-10-PCS; 2023-02-13)
PROC: 30233J1 Transfusion of Nonautologous Serum Albumin into Peripheral Vein, Percutaneous Approach (ICD-10-PCS; 2023-02-13)
DX: I25.118 Atherosclerotic heart disease of native coronary artery with other forms of angina pectoris (principal); T81.10XA Postprocedural shock unspecified, initial encounter; I42.8 Other cardiomyopathies; E78.00 Pure hypercholesterolemia, unspecified; K21.9 Gastro-esophageal reflux disease without esophagitis; I49.8 Other specified cardiac arrhythmias; E78.5 Hyperlipidemia, unspecified; M81.0 Age-related osteoporosis without current pathological fracture; M25.562 Pain in left knee; I95.81 Postprocedural hypotension; G89.29 Other chronic pain; Z98.890 Other specified postprocedural states; Z90.89 Acquired absence of other organs; Z82.49 Family history of ischemic heart disease and other diseases of the circulatory system; Z82.41 Family history of sudden cardiac death
CPT/HCPCS: 36416; 36430; 71045; 71275; 80048; 81003; 81015; 82805; 82947; 85025; 85027; 85610; 85730; 86850; 86900; 86901; 93005; 93010; 93306; 93798; 94002; 97139; C1751; J1250; J1642; J1644; J1650; J1815; J1885; J1940; J2001; J2150; J2250; J2260; J2370; J2405; J2440; J2704; J2720; J3010; J3370; J3475; J3480; J3490; J7030; J7120; P9045; Q9967; S0017; S0028

== ENCOUNTER 2024-04-17 10:00 | Inpatient (IN) | payer MEDICARE, OTHER ==
[2024-04-21] MEDS ORDERED: Vancomycin 1 GM VIAL ONE (06:28)
[2024-04-21] MEDS ORDERED: Rocuronium Bromide 10 MG/ML (10ML VIAL) ONE (06:41)
[2024-04-21] MEDS ORDERED: Lidocaine 2% PF 5 ML VIAL ONE (06:41)
[2024-04-21] MEDS ORDERED: MINERAL OIL/WHITE PETROLATUM 3.5 GM TUBE ONE (06:41)
[2024-04-21] MEDS ORDERED: PROPOFOL 20 ML ONE (06:41)
[2024-04-21] MEDS ORDERED: Ondansetron PF 4 MG/2 ML Vial IVP PRN (06:53)
[2024-04-21] MEDS ORDERED: Mag-Al 1200 mg/1200 mg/30 ML UDCUP PO PRN (06:53)
[2024-04-21] MEDS ORDERED: diphenhydrAMINE 50 MG/ML VIAL IVP PRN (06:53)
[2024-04-21] MEDS ORDERED: Cyclobenzaprine 10 MG TAB PO PRN (06:53)
[2024-04-21] MEDS ORDERED: Acetaminophen 325 MG TAB PO PRN (06:53)
[2024-04-21] MEDS ORDERED: Milk Of Magnesia 30 ML UDCUP PO PRN (06:53)
[2024-04-21] MEDS ORDERED: Morphine 2 MG/ML VIAL SLOW IVP PRN (06:53)
[2024-04-21] MEDS ORDERED: Promethazine 25 MG TAB PO PRN (06:53)
[2024-04-21] MEDS ORDERED: Fentanyl 250 MCG/5 ML VIAL ONE (07:07)
[2024-04-21] MEDS ORDERED: SUCCINYLCHOLINE/SOD CL,ISO/PF 200 MG/10 ML SYRINGE FS ONE (07:10)
[2024-04-21] MEDS ORDERED: CEFAZOLIN 2 GM VIAL ONE (07:15)
[2024-04-21] MEDS ORDERED: Ondansetron PF 4 MG/2 ML Vial ONE (07:46)
[2024-04-21] MEDS ORDERED: Dexamethasone 4 mg/ml Vial ONE (07:46)
[2024-04-21] MEDS ORDERED: diphenhydrAMINE 50 MG/ML VIAL ONE ×2 (07:47→09:18)
[2024-04-21] MEDS ORDERED: SUGAMMADEX SODIUM 200 MG/2 ML VIAL ONE (07:49)
[2024-04-21] MEDS ORDERED: PHENYLEPHRINE-NS 100 MCG/ML 10 ML SYRINGE ONE (08:15)
[2024-04-21] MEDS ORDERED: Glucagon 1 MG/ML KIT IM PRN (08:49)
[2024-04-21] MEDS ORDERED: Dextrose 50% Abboject 50 ML SYRINGE SLOW IVP PRN (08:49)
[2024-04-21] MEDS ORDERED: Dextrose 5% in Water 1,000 ML IV PRN (08:49)
[2024-04-21] MEDS ORDERED: Insulin Lispro 100 UNIT/ML 10 ML VIAL SC PRN (08:49)
[2024-04-21] MEDS ORDERED: HYDROmorphone 0.5 MG/0.5 ML SYRINGE ONE ×2 (08:54→09:15)
[2024-04-21] MEDS ORDERED: fentaNYL PF 100 MCG/2 ML SYRINGE ONE ×2 (08:54→09:15)
[2024-04-21] MEDS: Sacubitril 24MG/Valsartan 26 MG TAB PO SCH (09:00)
[2024-04-21] MEDS: Sodium Chloride 0.9% 1,000 ML IV SCH (09:00)
[2024-04-21] MEDS: Pantoprazole DR 40 MG TAB PO SCH (10:04)
[2024-04-21] MEDS: CEFAZOLIN 2 GM in Sodium Chloride 0.9% 100 ML IVPB SCH (14:54)
[2024-04-21] MEDS: traMADol HCl 50 MG TAB PO PRN (15:26)
[2024-04-21] MEDS: Carvedilol 6.25 MG TAB PO SCH (18:08)
[2024-04-21] MEDS: HYDROcodone/Acetaminophen 10/325 mg Tablet PO PRN (20:10)
[2024-04-22] MEDS: traMADol HCl 50 MG TAB PO PRN (05:34)
[2024-04-22 06:44] VITALS: BP 114/77
[2024-04-22 07:28] VITALS: TEMP 98.1
[2024-04-22] MEDS: FLU (Fluad Triv) TS24-25 (65UP)/MF59C/PF 45 MCG/0.5 ML Syringe IM ONE (09:39)
[2024-04-22 18:09] VITALS: BMI 37.1
== END 2024-04-22 11:45 | disposition home or self-care (01) | DRG 451 ==
LOC: SURG A 04-21 06:18 → SURG B 04-21 09:57 → EDSTATUS 04-21 10:00
PROVIDERS: ADMIT Neurological Surgery; ATTEND Neurological Surgery
PROC: 0SG00J1 Fusion of Lumbar Vertebral Joint with Synthetic Substitute, Posterior Approach, Posterior Column, Open Approach (ICD-10-PCS; principal; 2024-04-21)
PROC: 0QP004Z Removal of Internal Fixation Device from Lumbar Vertebra, Open Approach (ICD-10-PCS; 2024-04-21)
PROC: 3E0U0GB Introduction of Recombinant Bone Morphogenetic Protein into Joints, Open Approach (ICD-10-PCS; 2024-04-21)
DX: T84.89XA Other specified complication of internal orthopedic prosthetic devices, implants and grafts, initial encounter (principal); I42.9 Cardiomyopathy, unspecified; I50.32 Chronic diastolic (congestive) heart failure; M43.16 Spondylolisthesis, lumbar region; I25.10 Atherosclerotic heart disease of native coronary artery without angina pectoris; E78.5 Hyperlipidemia, unspecified; M81.0 Age-related osteoporosis without current pathological fracture; K21.9 Gastro-esophageal reflux disease without esophagitis; K44.9 Diaphragmatic hernia without obstruction or gangrene; Z98.890 Other specified postprocedural states; Z95.1 Presence of aortocoronary bypass graft; Z79.1 Long term (current) use of non-steroidal anti-inflammatories (NSAID); Z79.899 Other long term (current) drug therapy; Z88.5 Allergy status to narcotic agent
CPT/HCPCS: 90653; C1713; C1889; J1100; J1170; J1200; J2405; J2704; J3010; J3370

== ENCOUNTER 2024-04-17 10:27 | Outpatient (CLI) | payer MEDICARE, OTHER ==
[2024-04-17 11:40] LABS: #Basophils 0.03 10x3/uL (0.0-0.2); %Basophils 0.6 % (0.0-1.0); %Eosinophils 0.9 % (0.0-10.0); %Lymphocytes 30.6 % (21.0-51.0); %Monocytes 10.9 % (0.0-10.0); %Neutrophils 56.8 % (42.0-75.0); Hematocrit 40.7 % (36.0-47.0); Hemoglobin 12.6 g/dL (12.0-16.0); Mean Corpuscular Hemoglobin 30.3 pg (27.0-31.0); Mean Corpuscular Volume 97.8 fL (78.0-98.0); Mean Platelet Volume 10.3 fL (7.4-10.4); Platelet Count 248 10x3/uL (130-400); RBC Distribution Width 13.6 % (11.5-14.5); Red Blood Cell (RBC) Count 4.16 mill/uL (4.20-5.40)
[2024-04-17 12:07] LABS: Anion Gap 11 mmol/L (10-20); BUN (Urea Nitrogen) 20 mg/dL (9.8-20.1); Calc. Creatinine Clearance 0 mL/min (70-130); Calcium 9.7 mg/dL (7.8-10.44); Carbon Dioxide 27 mmol/L (23-31); Chloride 111 mmol/L (98-107); Estimated GFR 69; Glucose 95 mg/dL (83-110); Potassium 4.6 mmol/L (3.5-5.1); Sodium 144 mmol/L (136-145)
== END 2024-04-17 10:28 | disposition home or self-care (01) ==
LOC: LABBT 10:27
PROVIDERS: ATTEND Neurological Surgery
DX: Z01.818 Encounter for other preprocedural examination (principal); M54.16 Radiculopathy, lumbar region
CPT/HCPCS: 80048; 85025; 93005; 93010

== ENCOUNTER 2024-05-05 16:04 | Outpatient (CLI) | payer MEDICARE, OTHER | END 2024-05-05 16:05 | disposition home or self-care (01) | LOC: BICRAD 16:04 | PROVIDERS: ATTEND Neurological Surgery | DX: M47.26 Other spondylosis with radiculopathy, lumbar region (principal); M43.16 Spondylolisthesis, lumbar region | CPT/HCPCS: 72100 ==

== ENCOUNTER 2024-06-10 11:30 | Outpatient (CLI) | payer MEDICARE, OTHER | END 2024-06-10 11:31 | disposition home or self-care (01) | LOC: BICRAD 11:30 | PROVIDERS: ATTEND Neurological Surgery | DX: M54.16 Radiculopathy, lumbar region (principal) | CPT/HCPCS: 72100 ==

== ENCOUNTER 2025-01-07 10:24 | Outpatient (CLI) | payer MEDICARE, OTHER | END 2025-01-07 10:25 | disposition home or self-care (01) | LOC: SCSRAD 10:24 | PROVIDERS: ATTEND Family Medicine | DX: M79.672 Pain in left foot (principal); M79.671 Pain in right foot; M19.072 Primary osteoarthritis, left ankle and foot; M20.12 Hallux valgus (acquired), left foot ==

== ENCOUNTER 2025-02-06 12:46 | Outpatient (CLI) | payer MEDICARE, OTHER | END 2025-02-06 12:47 | disposition home or self-care (01) | LOC: SCSMRI 12:46 | PROVIDERS: ATTEND Neurological Surgery | DX: M43.16 Spondylolisthesis, lumbar region (principal); M47.816 Spondylosis without myelopathy or radiculopathy, lumbar region; M51.369 Other intervertebral disc degeneration, lumbar region without mention of lumbar back pain or lower extremity pain; M48.061 Spinal stenosis, lumbar region without neurogenic claudication | CPT/HCPCS: 72148 ==